=== PATIENT | female | born 1985 | race Caucasian/White ===

== ENCOUNTER 2023-01-21 19:16 | Inpatient (IN) | payer OTHER ==
[2023-01-21 19:59] VITALS: BMI 33.4
[2023-01-21] MEDS ORDERED: Ibuprofen 800 MG TAB PO PRN (21:17)
[2023-01-21] MEDS ORDERED: Acetaminophen 500 MG TAB PO PRN (21:17)
[2023-01-21] MEDS ORDERED: hydrALAZINE 20 MG/ML VIAL SLOW IVP PRN (21:17)
[2023-01-21] MEDS ORDERED: Ondansetron PF 4 MG/2 ML Vial IVP PRN (21:17)
[2023-01-21] MEDS ORDERED: Promethazine HCl 25 MG/ML VIAL IM PRN (21:17)
[2023-01-21] MEDS ORDERED: Lidocaine 1% (PF) 30 ML VIAL SC PRN (21:17)
[2023-01-21] MEDS ORDERED: Oxytocin 30 units/NS 500 ML 500 ML IV SCH ×2 (21:30→21:45)
[2023-01-21 22:05] LABS: Hematocrit 37.8 % (34.9-44.5); Hemoglobin 13.2 g/dL (12.0-15.5); Mean Corpuscular HGB CONC 34.9 g/dL (32.0-36.0); Mean Corpuscular Hemoglobin 31.9 pg (27.0-33.0); Mean Corpuscular Volume 91.3 fl (81.6-98.3); Mean Platelet Volume 9.7 fl (7.4-10.4); Platelet Count 185 10x3/uL (150-450); RBC Distribution Width 13.2 % (11.5-14.5); Red Blood Cell (RBC) Count 4.14 10x6/uL (3.90-5.03); White Blood Cell (WBC) Count 12.9 10x3/uL (3.5-10.5)
[2023-01-21 22:49] LABS: Syphilis Antibody Nonreactive (Nonreactive); Syphilis Antibody Index 0.05 S/CO (<1.00 Non-Reactive)
[2023-01-21 22:51] LABS: HBSAg Index 0.17 S/CO (0-0.99); Hep B Surf Ag - L&D Non-Reactive S/CO (NonReactive)
[2023-01-21] MEDS ORDERED: CEFAZOLIN 2 GM VIAL ONE (22:55)
[2023-01-21] MEDS ORDERED: Azithromycin 500 MG VIAL ONE (22:56)
[2023-01-21] MEDS ORDERED: Bicitra 30 ML UDCUP PO PRN (23:22)
[2023-01-21] MEDS ORDERED: Famotidine/PF 20 mg/2ml Vial SLOW IVP PRN (23:22)
[2023-01-21] MEDS ORDERED: CEFAZOLIN 2 GM in Sodium Chloride 0.9% 100 ML IVPB SCH (23:30)
[2023-01-21] MEDS ORDERED: Azithromycin 500 MG in Sodium Chloride 0.9% 250 ML 250 ML IVPB SCH (23:30)
[2023-01-21] MEDS ORDERED: Sodium Bicarbonate 2.5 MEQ/5 ML VIAL ONE (23:55)
[2023-01-21] MEDS ORDERED: PHENYLEPHRINE-NS 100 MCG/ML 10 ML SYRINGE ONE (23:55)
[2023-01-22] MEDS ORDERED: fentaNYL/Ropivacaine Epidural 100 ML ONE (00:01)
[2023-01-22] MEDS ORDERED: ePHEDrine Sulfate 50 MG/10 ML VIAL SLOW IVP PRN (00:32)
[2023-01-22] MEDS ORDERED: Naloxone HCl 0.4 mg/ml Vial IVP PRN ×4 (00:32→20:29)
[2023-01-22] MEDS ORDERED: diphenhydrAMINE 50 MG/ML VIAL IVP PRN ×2 (00:32→20:29)
[2023-01-22] MEDS ORDERED: Ondansetron PF 4 MG/2 ML Vial IVP PRN ×3 (00:32→20:29)
[2023-01-22] MEDS ORDERED: Moisturizing Cream (Eucerin) 113 GM JAR TOP PRN ×2 (00:32→20:29)
[2023-01-22] MEDS ORDERED: Lactated Ringer's 500 ML IV PRN (00:32)
[2023-01-22] MEDS ORDERED: Acetaminophen 325 MG TAB PO PRN (00:32)
[2023-01-22] MEDS ORDERED: Promethazine HCl 25 MG/ML VIAL IM PRN ×2 (00:32→20:29)
[2023-01-22] MEDS ORDERED: Communication Order-Pharmacy FS SCH ×2 (00:45→20:30)
[2023-01-22] MEDS ORDERED: fentaNYL 2 mcg/Ropivacaine 0.2% Epidural 100 ML CADD EPIDURAL SCH (00:45)
[2023-01-22] MEDS ORDERED: Methylergonovine 0.2 MG/ML VIAL ONE (14:24)
[2023-01-22] MEDS ORDERED: Carboprost 250 MCG/ML AMP ONE (14:24)
[2023-01-22] MEDS ORDERED: Misoprostol 200 MCG TAB ONE (14:24)
[2023-01-22] MEDS: Calcium Carbonate 500 MG ChewTAB PO PRN (15:46)
[2023-01-22] MEDS ORDERED: Azithromycin 500 MG VIAL ONE (18:32)
[2023-01-22] MEDS ORDERED: CEFAZOLIN 2 GM VIAL ONE (18:32)
[2023-01-22] MEDS ORDERED: Bicitra 30 ML UDCUP PO PRN (18:33)
[2023-01-22] MEDS ORDERED: Famotidine/PF 20 mg/2ml Vial SLOW IVP PRN (18:33)
[2023-01-22] MEDS ORDERED: Morphine PF 10 MG/10 ML VIAL ONE (18:39)
[2023-01-22] MEDS ORDERED: fentaNYL 50 mcg/mL 1 mL Vial ONE ×2 (18:39→19:49)
[2023-01-22] MEDS ORDERED: Lidocaine 2% MPF 10 ML AMP (For Epidural Use) ONE ×2 (18:39→19:31)
[2023-01-22] MEDS ORDERED: Phenylephrine 40 MG/NS 250 ML 250 ML ONE (18:39)
[2023-01-22] MEDS ORDERED: Ketorolac Tromethamine 30 MG/ML VIAL ONE (18:39)
[2023-01-22] MEDS ORDERED: Azithromycin 500 MG in Sodium Chloride 0.9% 250 ML 250 ML IVPB SCH (18:45)
[2023-01-22] MEDS ORDERED: CEFAZOLIN 2 GM in Sodium Chloride 0.9% 100 ML IVPB SCH (18:45)
[2023-01-22] MEDS ORDERED: Oxytocin 10 UNITS/ML VIAL ONE ×4 (19:00→19:42)
[2023-01-22] MEDS ORDERED: Ondansetron PF 4 MG/2 ML Vial ONE (19:18)
[2023-01-22] MEDS ORDERED: Lanolin Ointment 7 GM TUBE TOP PRN (19:18)
[2023-01-22] MEDS ORDERED: Dexamethasone 4 mg/ml Vial ONE (19:18)
[2023-01-22] MEDS ORDERED: Boostrix 0.5 ML (Tdap) VIAL (>/=7 yrs of age) IM ONE (19:18)
[2023-01-22] MEDS ORDERED: diphenhydrAMINE 50 MG/ML VIAL ONE (19:32)
[2023-01-22] MEDS ORDERED: fentaNYL 50 mcg/mL 1 mL Vial SLOW IVP PRN (20:29)
[2023-01-22] MEDS ORDERED: Meperidine HCl/PF 25 MG/ML VIAL SLOW IVP PRN (20:29)
[2023-01-22] MEDS ORDERED: Promethazine HCl 25 MG SUPP PR PRN (20:29)
[2023-01-22] MEDS ORDERED: Naloxone HCl 0.4 mg/ml Vial IV PRN (20:29)
[2023-01-22] MEDS ORDERED: Ketorolac Tromethamine 30 MG/ML VIAL IVP SCH (20:30)
[2023-01-23] MEDS: Ketorolac Tromethamine 30 MG/ML VIAL IVP PRN ×2 (03:34→09:30)
[2023-01-23 04:08] LABS: Hematocrit 29.9 % (34.9-44.5); Hemoglobin 10.6 g/dL (12.0-15.5); Mean Corpuscular HGB CONC 35.5 g/dL (32.0-36.0); Mean Corpuscular Hemoglobin 33.1 pg (27.0-33.0); Mean Corpuscular Volume 93.4 fl (81.6-98.3); Mean Platelet Volume 10.2 fl (7.4-10.4); Platelet Count 160 10x3/uL (150-450); RBC Distribution Width 13.5 % (11.5-14.5); White Blood Cell (WBC) Count 16.4 10x3/uL (3.5-10.5)
[2023-01-23] MEDS: Prenatal Vitamin 1 TAB PO SCH (09:30)
[2023-01-23 09:43] LABS: PTT 28.1 sec (22.0-33.0); Prothrombin Time 10.8 sec (9.5-12.1)
[2023-01-23 09:58] LABS: D-Dimer Test 2.98 mg/L FEU (0.19-0.50)
[2023-01-23] MEDS: Calcium Carbonate 500 MG ChewTAB PO PRN (12:00)
[2023-01-23] MEDS: HYDROcodone/Acetaminophen 5/325 mg Tablet PO PRN ×4 (12:00→23:46)
[2023-01-23] MEDS ORDERED: Simethicone Chewable 80 MG TAB PO PRN (12:09)
[2023-01-23] MEDS ORDERED: Bupivacaine 0.25% HCL 30 ML VIAL ONE (17:52)
[2023-01-23] MEDS: Docusate 100 MG CAP PO SCH (20:14)
[2023-01-23] MEDS ORDERED: Ibuprofen 800 MG TAB PO PRN (20:30)
[2023-01-24] MEDS: HYDROcodone/Acetaminophen 5/325 mg Tablet PO PRN ×4 (04:26→23:52)
[2023-01-24 05:18] LABS: Hematocrit 26.5 % (34.9-44.5); Mean Corpuscular Hemoglobin 32.6 pg (27.0-33.0); Mean Platelet Volume 10.1 fl (7.4-10.4); Platelet Count 149 10x3/uL (150-450); RBC Distribution Width 13.7 % (11.5-14.5); Red Blood Cell (RBC) Count 2.76 10x6/uL (3.90-5.03); White Blood Cell (WBC) Count 10.9 10x3/uL (3.5-10.5)
[2023-01-24] MEDS: Prenatal Vitamin 1 TAB PO SCH (08:21)
[2023-01-24] MEDS: Docusate 100 MG CAP PO SCH (08:21)
[2023-01-24] MEDS: Ibuprofen 800 MG TAB PO SCH ×2 (10:36→18:31)
[2023-01-25] MEDS: Ibuprofen 800 MG TAB PO SCH (03:00)
[2023-01-25] MEDS: Prenatal Vitamin 1 TAB PO SCH (07:45)
[2023-01-25] MEDS: Docusate 100 MG CAP PO SCH ×3 (07:45→07:52)
[2023-01-25 08:45] VITALS: BP 122/70; TEMP 97.8
== END 2023-01-25 11:10 | disposition home or self-care (01) | DRG 787 ==
LOC: CSHLD/OP 19:16 → CSHLD 21:07 → CSHPP 01-22 22:23
PROVIDERS: ADMIT Family Medicine; ATTEND Family Medicine
PROC: 10H07YZ Insertion of Other Device into Products of Conception, Via Natural or Artificial Opening (ICD-10-PCS; principal; 2023-01-22)
PROC: 10D00Z1 Extraction of Products of Conception, Low, Open Approach (ICD-10-PCS; 2023-01-22)
DX: O48.0 Post-term pregnancy (principal); O72.1 Other immediate postpartum hemorrhage; Z37.0 Single live birth; O32.4XX0 Maternal care for high head at term, not applicable or unspecified; Z3A.41 41 weeks gestation of pregnancy; O42.02 Full-term premature rupture of membranes, onset of labor within 24 hours of rupture
CPT/HCPCS: 36415; 36416; 51702; 85027; 85049; 85300; 85362; 85379; 85384; 85610; 85730; 86780; 86850; 86900; 86901; 87340; 99285; J0456; J1100; J1200; J1885; J2274; J2405; J2590; J3010; S0020